=== PATIENT | male | born 1970 | race Caucasian/White ===

== ENCOUNTER 2021-05-17 10:44 | Emergency (ER) | payer OTHER ==
[~2021-05-17] VITALS: Ht 182.9 cm; Wt 104.3 kg
[2021-05-17 10:55] VITALS: BP 145/94
[2021-05-17] MEDS ORDERED: OZEMPIC0.25 MG/0. SUBQ (11:01)
[2021-05-17] MEDS ORDERED: LANTUSSOLASTAR SUBQ (11:01)
[2021-05-17] MEDS ORDERED: METFORMIN HCL1000 M1 PO (11:01)
== END 2021-05-17 11:43 | disposition home or self-care (01) ==
LOC: M.ERS 10:44
DX: S63.264A Dislocation of metacarpophalangeal joint of right ring finger, initial encounter (principal); E11.9 Type 2 diabetes mellitus without complications; Z79.899 Other long term (current) drug therapy; W01.0XXA Fall on same level from slipping, tripping and stumbling without subsequent striking against object, initial encounter; Y93.89 Activity, other specified; Y92.89 Other specified places as the place of occurrence of the external cause; Y99.8 Other external cause status